=== PATIENT | male | born 1950 | race Caucasian/White ===

== ENCOUNTER 2021-08-29 17:30 | Emergency (ER) | payer OTHER ==
[2021-08-29 18:38] LABS: BASOPHIL 0.2 % (0-2); EOSINOPHIL 0.1 % (0-7); HCT 39.6 % (42.0-52.0); MCHC 32.8 g/dL (32.0-36.0); MCV 85.3 fL (78.0-100.0); MONOCYTE 4.2 % (0-12); MPV 10.4 fL (6.0-9.5); NRBC 0; PLT 242 K/uL (150-400); RBC 4.64 M/uL (4.70-6.00); RDW 13.9 % (11.5-14.0); WBC 12.9 K/uL (4.0-10.5)
[2021-08-29 18:43] LABS: INR 1.06 (0.9-1.2); PROTHROMBIN TIME 13.2 SECONDS (11.8-13.4); PTT 25.2 SECONDS (24.4-34.7)
[2021-08-29 18:45] LABS: NEUTROPHIL 90.1 % (41-80)
[2021-08-29 18:52] LABS: ALBUMIN 3.9 g/dL (3.4-5.0); BILIRUBIN - TOTAL 1.2 mg/dL (0.2-1.0); BUN/CREAT RATIO (CALC) 15.9 RATIO; CREATININE 1.51 mg/dL (0.67-1.17); GLOBULIN (CALCULATION) 3.4 g/dL; POTASSIUM 4.8 mmol/L (3.5-5.1); TOTAL PROTEIN 7.3 g/dL (6.4-8.2)
[2021-08-29 18:55] LABS: LACTIC ACID 1.4 mmol/L (0.4-1.9)
[2021-08-29 20:29] LABS: BILIRUBIN 1+ mg/dL (NEGATIVE); BLOOD NEGATIVE Ery/uL (NEGATIVE); CLARITY CLEAR (CLEAR); COLOR YELLOW (YELLOW); GLUCOSE (U) NORMAL (NORMAL); LEUKOCYTES NEGATIVE Leu/uL (NEGATIVE); NITRITE NEGATIVE (NEGATIVE); PROTEIN NEGATIVE (NEGATIVE); SPECIFIC GRAVITY 1.015 (1.001-1.030)
== END 2021-08-30 01:22 | disposition other institution (70) ==
LOC: FER 17:30
PROVIDERS: Emergency Medicine
DX: K56.609 Unspecified intestinal obstruction, unspecified as to partial versus complete obstruction (principal); C18.9 Malignant neoplasm of colon, unspecified; E11.9 Type 2 diabetes mellitus without complications; I10 Essential (primary) hypertension; K21.9 Gastro-esophageal reflux disease without esophagitis; Z20.822 Contact with and (suspected) exposure to COVID-19; Z87.891 Personal history of nicotine dependence; Z79.84 Long term (current) use of oral hypoglycemic drugs; Z79.899 Other long term (current) drug therapy
CPT/HCPCS: 36415; 80053; 81003; 83605; 85025; 85610; 85730; 87040; 93005; J2405; J2543; J2550; J7030; U0002

== ENCOUNTER 2021-11-19 09:42 | Inpatient (IN) | payer OTHER ==
[~2021-11-19] VITALS: Ht 170.2 cm; Wt 85.3 kg
[2021-11-19 10:20] LABS: BASOPHIL 0.4 % (0-2); EOSINOPHIL 0.5 % (0-7); HCT 30.3 % (42.0-52.0); HGB 9.9 g/dl (13.2-18.0); LYMPHOCYTE 19.7 % (15-48); MCH 28.4 pg (25.0-31.0); MCHC 32.7 g/dL (32.0-36.0); MCV 86.8 fL (78.0-100.0); MONOCYTE 15.7 % (0-12); MPV 10.5 fL (6.0-9.5); NEUTROPHIL 61.9 % (41-80); NRBC 0; PLT 172 K/uL (150-400); RBC 3.49 M/uL (4.70-6.00); RDW 17.6 % (11.5-14.0); WBC 5.5 K/uL (4.0-10.5)
[2021-11-19 10:44] LABS: INR 1.2 (0.9-1.2); PROTHROMBIN TIME 14.8 SECONDS (11.9-13.9); PTT 31.9 SECONDS (24.9-34.6)
[2021-11-19 10:47] LABS: ALBUMIN 2.4 g/dL (3.4-5.0); BILIRUBIN - TOTAL 0.7 mg/dL (0.2-1.0); BUN/CREAT RATIO (CALC) 22.2 RATIO; CREATININE 1.71 mg/dL (0.67-1.17); GLOBULIN (CALCULATION) 3.5 g/dL; MAGNESIUM 1.5 mg/dL (1.8-2.4); POTASSIUM 4.1 mmol/L (3.5-5.1); TOTAL PROTEIN 5.9 g/dL (6.4-8.2)
[2021-11-19 10:52] LABS: LACTIC ACID 2.5 mmol/L (0.4-1.9)
[2021-11-19 10:59] LABS: D-DIMER 3.58 ug/mLFEU (0.00-0.41)
[2021-11-19 13:40] LABS: BILIRUBIN NEGATIVE (NEGATIVE); BLOOD NEGATIVE Ery/uL (NEGATIVE); CLARITY CLEAR (CLEAR); COLOR YELLOW (YELLOW); GLUCOSE (U) NORMAL (NORMAL); LEUKOCYTES NEGATIVE Leu/uL (NEGATIVE); NITRITE NEGATIVE (NEGATIVE); PROTEIN TRACE (LOW) mg/dL (NEGATIVE); SPECIFIC GRAVITY 1.025 (1.001-1.030); UROBILINOGEN 0.2 mg/dL (0.2-1.0); pH 5.5 (5.0-9.0)
[2021-11-19 13:56] LABS: URINARY RBC RARE; URINARY WBC RARE
[2021-11-19 13:57] LABS: AMORPHOUS PHOSPHATE CRYSTALS TRACE; BACTERIA TRACE; MUCOUS TRACE
[2021-11-19] MEDS ORDERED: VENTOLIN HFA IN18 GM INH (16:27)
[2021-11-19] MEDS ORDERED: NORVASC2.5 MG PO (16:27)
[2021-11-19] MEDS ORDERED: LIPITOR20 M1 PO (16:28)
[2021-11-19] MEDS ORDERED: B COMPLEX1 EACH PO (16:28)
[2021-11-19] MEDS ORDERED: PULMICORT0.5 MG/2 M NEB (16:29)
[2021-11-19] MEDS ORDERED: [UNRECOGNIZED DRUG - OTHER] INH (16:30)
[2021-11-19] MEDS ORDERED: VITAMIN D325 MC2 PO (16:30)
[2021-11-19] MEDS ORDERED: FORADIL INH (16:30)
[2021-11-19] MEDS ORDERED: NYSTATIN 30GM C30 GM TOP (16:31)
[2021-11-19] MEDS ORDERED: MELATONIN5 M2 PO (16:31)
[2021-11-19] MEDS ORDERED: PRILOSEC20 MG PO (16:32)
[2021-11-19] MEDS ORDERED: ALTACE10 MG PO (16:32)
[2021-11-19] MEDS ORDERED: FLOMAX0.4 MG PO (16:32)
[2021-11-19] MEDS ORDERED: SPIRIVA 185 PUFFS/IN INH (16:33)
[2021-11-19] MEDS ORDERED: COMPAZINE10 MG PO (16:33)
[2021-11-20 05:51] LABS: BASOPHIL 0.5 % (0-2); EOSINOPHIL 1.1 % (0-7); HCT 26.4 % (42.0-52.0); HGB 8.6 g/dl (13.2-18.0); LYMPHOCYTE 23.5 % (15-48); MCH 28.3 pg (25.0-31.0); MCHC 32.6 g/dL (32.0-36.0); MCV 86.8 fL (78.0-100.0); MONOCYTE 20.3 % (0-12); MPV 10.4 fL (6.0-9.5); NEUTROPHIL 54.1 % (41-80); NRBC 0; PLT 158 K/uL (150-400); RBC 3.04 M/uL (4.70-6.00); RDW 17.5 % (11.5-14.0)
[2021-11-20 06:07] LABS: WBC 3.7 K/uL (4.0-10.5)
[2021-11-20 06:24] LABS: ALBUMIN 2.2 g/dL (3.4-5.0); BILIRUBIN - TOTAL 0.6 mg/dL (0.2-1.0); BUN/CREAT RATIO (CALC) 18.4 RATIO; CREATININE 1.47 mg/dL (0.67-1.17); GLOBULIN (CALCULATION) 3.2 g/dL; MAGNESIUM 1.9 mg/dL (1.8-2.4); TOTAL PROTEIN 5.4 g/dL (6.4-8.2)
[2021-11-20 10:48] LABS: BILIRUBIN NEGATIVE (NEGATIVE); BLOOD 3+ Ery/uL (NEGATIVE); COLOR YELLOW (YELLOW); GLUCOSE (U) NORMAL (NORMAL); LEUKOCYTES NEGATIVE Leu/uL (NEGATIVE); NITRITE NEGATIVE (NEGATIVE); PROTEIN TRACE (LOW) mg/dL (NEGATIVE); UROBILINOGEN 0.2 mg/dL (0.2-1.0)
[2021-11-20 10:58] LABS: CLARITY HAZY (CLEAR)
[2021-11-20 11:27] LABS: URINARY RBC 20-50
[2021-11-20 11:28] LABS: BACTERIA 2+; SPERM PRESENT
[2021-11-20 11:29] LABS: GRANULAR CASTS TRACE; URIC ACID CRYSTALS MODERATE
--- NOTE | 2021-11-20 13:37 | NUR ---
11/21/21 Mr. Shipley lives at home with his spouse. He is independent in the home and community. - Mr. Shipley receives chemo treatment at [facility] r/t colon cancer. He is able to drive himself for treatment.
[2021-11-21 06:14] LABS: BASOPHIL 0.5 % (0-2); HCT 28.4 % (42.0-52.0); HGB 9.3 g/dl (13.2-18.0); LYMPHOCYTE 24.4 % (15-48); MCH 28.4 pg (25.0-31.0); MCHC 32.7 g/dL (32.0-36.0); MCV 86.6 fL (78.0-100.0); MONOCYTE 23.7 % (0-12); NEUTROPHIL 48.1 % (41-80); NRBC 0; PLT 213 K/uL (150-400); RBC 3.28 M/uL (4.70-6.00); RDW 17.4 % (11.5-14.0)
[2021-11-21 06:22] LABS: WBC 3.9 K/uL (4.0-10.5)
[2021-11-21 06:52] LABS: BUN/CREAT RATIO (CALC) 11.1 RATIO; CREATININE 1.44 mg/dL (0.67-1.17); POTASSIUM 4.2 mmol/L (3.5-5.1)
[2021-11-21] MEDS ORDERED: AMIODARONE HCL200 MG PO (10:17)
[2021-11-21] MEDS ORDERED: ELIQUIS5 MG PO (10:17)
[2021-11-21] MEDS ORDERED: VIBRAMYCIN100 MG PO (10:17)
== END 2021-11-21 11:00 | disposition home or self-care (01) | DRG 308 ==
LOC: FER 09:42 → FICU 14:21 → FTCU 11-20 17:19
PROVIDERS: Emergency Medicine; Internal Medicine Cardiovascular Disease; Nurse Practitioner; ADMIT Internal Medicine
PROC: 5A2204Z Restoration of Cardiac Rhythm, Single (ICD-10-PCS; principal; 2021-11-19)
PROC: B24BZZZ Ultrasonography of Heart with Aorta (ICD-10-PCS; 2021-11-19)
DX: I48.91 Unspecified atrial fibrillation (principal); J18.9 Pneumonia, unspecified organism; C18.9 Malignant neoplasm of colon, unspecified; R57.9 Shock, unspecified; J44.1 Chronic obstructive pulmonary disease with (acute) exacerbation; J44.0 Chronic obstructive pulmonary disease with (acute) lower respiratory infection; Z20.822 Contact with and (suspected) exposure to COVID-19; I11.9 Hypertensive heart disease without heart failure; I47.2 Ventricular tachycardia; E11.9 Type 2 diabetes mellitus without complications; E78.5 Hyperlipidemia, unspecified; G47.33 Obstructive sleep apnea (adult) (pediatric); K21.9 Gastro-esophageal reflux disease without esophagitis; N40.0 Benign prostatic hyperplasia without lower urinary tract symptoms; Z82.49 Family history of ischemic heart disease and other diseases of the circulatory system; Z79.899 Other long term (current) drug therapy; Z90.49 Acquired absence of other specified parts of digestive tract; Z87.891 Personal history of nicotine dependence; Z92.21 Personal history of antineoplastic chemotherapy; R79.1 Abnormal coagulation profile
CPT/HCPCS: 36415; 71045; 78582; 80048; 80053; 80061; 81001; 82962; 83036; 83605; 83735; 83880; 84145; 84443; 84484; 85025; 85379; 85610; 85730; 87040; 87088; 93005; 94010; 94640; 94760; 94762; 96365; 96375; A9540; J0282; J1642; J2250; J2405; J2543; J3475; J7030; J7060; U0002